=== PATIENT | female | born 1995 | race Caucasian/White ===

== ENCOUNTER → 2020-09-16 09:43 | Outpatient (CLI) | payer OTHER, MEDICAID, SELFPAY | PROVIDERS: PCP Nurse Practitioner Family; Referring Provider Nurse Practitioner Family; Visit Provider Family Medicine | DX: S51.801A Unspecified open wound of right forearm, initial encounter (principal); L08.9 Local infection of the skin and subcutaneous tissue, unspecified; Z86.14 Personal history of Methicillin resistant Staphylococcus aureus infection; F11.10 Opioid abuse, uncomplicated; B18.2 Chronic viral hepatitis C; R60.0 Localized edema | CPT/HCPCS: 11042; 87070; 87075; 87077; 87147; 87186; 87205; 99204; 99213 ==

== ENCOUNTER → 2020-09-29 11:33 | Outpatient (CLI) | payer OTHER, MEDICAID, SELFPAY | PROVIDERS: PCP Nurse Practitioner Family; Referring Provider Nurse Practitioner Family; Visit Provider Family Medicine | DX: S51.801A Unspecified open wound of right forearm, initial encounter (principal); F11.10 Opioid abuse, uncomplicated; B18.2 Chronic viral hepatitis C | CPT/HCPCS: 97597; 99214 ==

== ENCOUNTER → 2020-10-13 13:14 | Outpatient (CLI) | payer OTHER, MEDICAID, SELFPAY | PROVIDERS: PCP Nurse Practitioner Family; Referring Provider Nurse Practitioner Family; Visit Provider Family Medicine | DX: S51.801A Unspecified open wound of right forearm, initial encounter (principal); F11.10 Opioid abuse, uncomplicated; B18.2 Chronic viral hepatitis C | CPT/HCPCS: 11042; 99212 ==